=== PATIENT | male | born 1990 | race Caucasian/White ===

== ENCOUNTER 2016-10-07 22:51 | Emergency (ER) | payer OTHER, BC ==
[~2016-10-07] VITALS: Ht 182.9 cm; Wt 119.4 kg
[2016-10-07] MEDS ORDERED: ISENTRESS400 MG PO (23:51)
[2016-10-07] MEDS ORDERED: TRUVADA1 TABLET PO (23:51)
[2016-10-08 00:02] VITALS: BP 151/98
[2016-10-08 00:11] LABS: EOSINOPHIL (%) 1.3 % (0-5); EOSINOPHIL COUNT 0.1 K/uL (0-0.3); HEMATOCRIT 43.1 % (38.0-50.0); IMMATURE GRANULOCYTE (%) 0.2 % (0.0-0.7); INSTRUMENT ABS NEUTROPHIL CT 5.7 K/uL; LYMPHOCYTE COUNT 1.9 K/uL (1.0-2.8); MCH 31.1 PG (29.0-34.0); MCV 88.9 FL (86-99); MEAN PLAT.VOLUME 9.8 uM^3 (9.0-12.4); MONOCYTE (%) 8.1 % (3-12); MONOCYTE COUNT 0.7 K/uL (0-0.8); NEUTROPHIL (%) 67.5 % (45-76); NEUTROPHIL COUNT 5.7 K/uL (1.8-6.4); PLATELET COUNT 218 K/uL (156-360); RBC DIS.WIDTH-CV 12.4 % (11.8-14.6); RBC DIS.WIDTH-SD 40.5 % (39-53); RED BLOOD COUNT 4.85 M/uL (4.00-5.50); WHITE BLOOD COUNT 8.5 K/uL (4.1-10.2)
[2016-10-08 00:22] LABS: CHLORIDE 103 mEq/L (99-109); POTASSIUM 3.9 mEq/L (3.7-5.4); SODIUM 140 mEq/L (136-147)
[2016-10-08 00:25] LABS: GLUCOSE 92 mg/dL (70-99)
[2016-10-08 00:26] LABS: ANION GAP 11 MEQ/L (2-14)
[2016-10-08 00:28] LABS: ALKALINE PHOSPHATASE 50 IU/L (3-129); GFR ESTIMATE (CALCULATED) > 59 mL/min/
[2016-10-08 00:30] LABS: DIRECT BILIRUBIN 0.4 mg/dL (0.0-0.3); UREA NITROGEN (BUN) 12 mg/dL (9-23)
[2016-10-08 10:19] LABS: HPCA INDEX 0.11
== END 2016-10-08 00:11 | disposition home or self-care (01) ==
LOC: EXP 22:51 → EME 22:51 → EXP 10-08 00:11
PROVIDERS: Physician Assistant
DX: S61.211A Laceration without foreign body of left index finger without damage to nail, initial encounter (principal); W26.8XXA Contact with other sharp object(s), not elsewhere classified, initial encounter; Y92.149 Unspecified place in prison as the place of occurrence of the external cause; Y99.0 Civilian activity done for income or pay; Z87.891 Personal history of nicotine dependence
CPT/HCPCS: 80048; 80076; 85025; 86803; 99281; 99284